=== PATIENT | female | born 1945 | race Caucasian/White ===

== ENCOUNTER → 2016-06-27 | Outpatient (CLI) | payer OTHER ==
[2015-04-19 12:11] VITALS: BP 129/61
== END ==
LOC: LAB 12:38
PROVIDERS: ATTEND Specialist
DX: S72.001S Fracture of unspecified part of neck of right femur, sequela (principal); X58.XXXS Exposure to other specified factors, sequela
CPT/HCPCS: 36415; 85652; 86140